=== PATIENT | male | born 1990 | race Caucasian/White ===

== ENCOUNTER 2019-06-30 06:33 | Emergency (ER) | payer MEDICAID, OTHER ==
[2019-06-30] MEDS ORDERED: Dexamethasone 10 MG/ML SDV IVPUSH ONE (08:12)
[2019-06-30] MEDS ORDERED: Benzocaine 20% Topical Spray UD MUCMEM ONE ×2 (08:13→08:22)
[2019-06-30] MEDS ORDERED: Ondansetron 4 MG/2 ML SDV IVPUSH ONE (08:22)
[2019-06-30] MEDS: Sodium Chloride 0.9% 2.5 ML Syringe FLUSH PRN ×2 (08:27→10:20)
[2019-06-30] MEDS: Sodium Chloride 0.9% 10 ML Syringe FLUSH PRN ×2 (08:27→10:20)
[2019-06-30] MEDS ORDERED: Racepinephrine 2.25% 0.5 ML Neb Soln NEB ONE (08:30)
[2019-06-30] MEDS ORDERED: Sodium Chloride 0.9% Inhalation Soln 3 ML Neb INH PRN (08:30)
[2019-06-30] MEDS ORDERED: Ampicillin/Sulbactam Na 3 GM in Sodium Chloride 0.9% 100 ML IV ONE ×2 (08:31→09:30)
[2019-06-30 08:47] LABS: BLOOD UREA NITROGEN,BUN 20 mg/dL (7.0-18.0); CARBON DIOXIDE,CO2 24.2 mmol/L (21.0-32.0); CHLORIDE,CL 104 mmol/L (98-107); GLUCOSE RANDOM 111 mg/dL (74-106); POTASSIUM,K 4.1 mmol/L (3.5-5.1); SODIUM,NA 140 mmol/L (136-148)
--- NOTE | 2019-06-30 08:57 | EDM.PDOC ---
ED HPI GENERAL MEDICAL PROBLEM - General Chief Complaint: ENT Problem Stated Complaint: TOOTHACHE Time Seen by Provider: 06/30/19 07:50 Source of Information: Reports: Patient History Limitations: Reports: No Limitations - History of Present Illness INITIAL COMMENTS - FREE TEXT/NARRATIVE: HISTORY AND PHYSICAL: History of present illness: Patient is a 29-year-old male who presents to the ED today with concern of swelling in the back of his throat that he woke up with. Patient states that he has never had this occur before and he just woke up with it. Patient states if he opens his mouth to widely he will begin to gag and almost vomit. Patient states he has not tried to eat or drink anything since he woke up this morning. Patient denies any health history or any other symptoms or concerns. Patient denies fever, chills, chest pain, shortness of breath, or cough. Denies headache, neck stiff ness, change in vision, syncope, or near syncope. Denies nausea, vomiting, abdominal pain, diarrhea, constipation, or dysuria. Has not noted any blood in urine or stool. Patient has been eating and drinking appropriately. Review of systems: As per history of present illness and below otherwise all systems reviewed and negative. Past medical history: As per history of present illness and as reviewed below otherwise noncontributory. Surgical history: As per history of present illness and as reviewed below otherwise noncontributory. Social history: See social history for further information Family history: As per history of present illness and as reviewed below otherwise noncontributory. Physical exam: General: Patient is alert, oriented, and in no acute distress. Patient sitting comfortably on exam table. HEENT: Examination of the throat is limited due to patient nearly vomiting when opening mouth. However, the posterior oropharynx/possible uvula edema with erythema without exudate. Otherwise, atraumatic, normocephalic, pupils equal and reactive bilaterally, negative for conjunctival pallor or scleral icterus, mucous membranes moist, TMs normal bilaterally, neck supple, nontender, trachea midline. No drooling or trismus noted. No meningeal signs. No hot potato voice noted. Lungs: Clear to auscultation, breath sounds equal bilaterally, chest nontender. Heart: S1S2, regular rate and rhythm without overt murmur Abdomen: Soft, nondistended, nontender. Negative for masses or hepatosplenomegaly. Negative for costovertebral tenderness. Pelvis: Stable nontender. Genitourinary: Deferred. Rectal: Deferred. Skin: Intact, warm, dry. No lesions or rashes noted. Extremities: Atraumatic, negative for cords or calf pain. Neurovascular unremarkable. Neuro: Awake, alert, oriented. Cranial nerves II through XII unremarkable. Cerebellum unremarkable. Motor and sensory unremarkable throughout. Exam nonfocal. Notes: Dr. Hernandez directly involved in patient care. I did call and speak to ENT specialist, Dr. Booker, and thoroughly discussed patient's case. Dr. Booker does not seem concerned about any acute process at this time and states to send patient home on antibiotics. Patient able to tolerate PO intake in the ED and has improvement of symptoms today in the ED. Discussed importance for follow-up with a primary care provider. Voices understanding and is agreeable to plan of care. Denies any further questions or concerns at this time. Diagnostics: CBC, CMP, Soft tissue neck CT, Strep Therapeutics: Decadron, Racemic epinephrine, Unasyn, Zofran Prescription: Clindamycin Impression: Tonsillitis Plan: 1. Take medication as prescribed. You can alternate ibuprofen and Tylenol as directed for pain and discomfort. 2. Follow-up with a primary care provider as discussed. Return to the ED as needed and as discussed. Definitive disposition and diagnosis as appropriate pending reevaluation and review of above. dental area Pain Score (Numeric/FACES): 2 - Related Data Allergies Allergy/AdvReac Type Severity Reaction Status Date / Time shellfish derived Allergy Anaphylactic Verified 06/30/19 06:46 Shock shrimp Allergy Anaphylactic Verified 06/30/19 06:46 Shock Home Meds: Home Meds Clindamycin HCl 600 mg PO BID 10 Days #40 capsule 06/30/19 [Rx] Past Medical History HEENT History: Reports: None Cardiovascular History: Reports: None Respiratory History: Reports: None Gastrointestinal History: Reports: None Genitourinary History: Reports: None Musculoskeletal History: Reports: None Neurological History: Reports: None Psychiatric History: Reports: None Endocrine/Metabolic History: Reports: None Insulin Pump Model and Improvement Rn: None Hematologic History: Reports: None Immunologic History: Reports: None Oncologic (Cancer) History: Reports: None Dermatologic History: Reports: None - Infectious Disease History Infectious Disease History: Reports: None - Past Surgical History Head Surgeries/Procedures: Reports: None HEENT Surgical History: Reports: None Cardiovascular Surgical History: Reports: None Respiratory Surgical History: Reports: None GI Surgical History: Reports: None Male Surgical History: Reports: None Endocrine Surgical History: Reports: None Neurological Surgical History: Reports: None Musculoskeletal Surgical History: Reports: None Oncologic Surgical History: Reports: None Dermatological Surgical History: Reports: None Social & Family History - Family History Family Medical History: Noncontributory - Tobacco Use Smoking Status *Q: Never Smoker - Caffeine Use Caffeine Use: Reports: Coffee, Soda - Recreational Drug Use Recreational Drug Use: No ED ROS GENERAL - Review of Systems Review Of Systems: Comprehensive ROS is negative, except as noted in HPI. ED EXAM, GENERAL - Physical Exam Exam: See Below (see dictation) Course - Vital Signs Last Recorded V/S: Last Vital Signs Temp 98.1 F 06/30/19 06:45 Pulse 128 H 06/30/19 06:45 Resp 18 06/30/19 06:45 BP 151/98 H 06/30/19 06:45 Pulse Ox 96 06/30/19 06:45 - Orders/Labs/Meds Orders: Active Orders 24 hr Category Date Time Status RT Aerosol Therapy [RC] ASDIRECTED Care 06/30/19 08:30 Active CULTURE STREP A CONFIRMATION [] Stat Lab 06/30/19 08:30 Results STREP SCRN A RAPID W CULT CONF [] Stat Lab 06/30/19 08:30 Results Sodium Chloride 0.9% Med 06/30/19 08:30 Active 3 ml INH ASDIRECTED PRN Sodium Chloride 0.9% [Saline Flush] Med 06/30/19 08:02 Active 10 ml FLUSH ASDIRECTED PRN Sodium Chloride 0.9% [Saline Flush] Med 06/30/19 08:02 Active 2.5 ml FLUSH ASDIRECTED PRN Saline Lock Insert [OM.PC] Stat Oth 06/30/19 08:02 Ordered Medication Orders Sodium Chloride (Saline Flush) 10 ml FLUSH ASDIRECTED PRN PRN Reason: Keep Vein Open Last Admin: 06/30/19 10:20 Dose: 10 ml Admin: 06/30/19 08:27 Dose: 10 ml Sodium Chloride (Saline Flush) 2.5 ml FLUSH ASDIRECTED PRN PRN Reason: Keep Vein Open Last Admin: 06/30/19 10:20 Dose: 2.5 ml Admin: 06/30/19 08:27 Dose: 2.5 ml Sodium Chloride (Sodium Chloride 0.9%) 3 ml INH ASDIRECTED PRN PRN Reason: mix with racepinephrine neb Last Admin: 06/30/19 10:20 Dose: 3 ml Labs: Laboratory Tests 06/30/19 06/30/19 Range/Units 08:20 08:20 WBC 11.02 H (4.0-11.0) K/uL RBC 5.48 (4.50-5.90) M/uL Hgb 16.6 (13.0-17.0) g/dL Hct 50.3 H (38.0-50.0) % MCV 91.8 (80.0-98.0) fL MCH 30.3 (27.0-32.0) pg MCHC 33.0 (31.0-37.0) g/dL RDW Std Deviation 43.7 (28.0-62.0) fl RDW Coeff of Fabian 13 (11.0-15.0) % Plt Count 204 (150-400) K/uL MPV 10.90 (7.40-12.00) fL Neut % (Auto) 81.5 H (48.0-80.0) % Lymph % (Auto) 6.8 L (16.0-40.0) % Wagoner % (Auto) 10.7 (0.0-15.0) % Eos % (Auto) 0.7 (0.0-7.0) % Baso % (Auto) 0.3 (0.0-1.5) % Neut # (Auto) 9.0 H (1.4-5.7) K/uL Lymph # (Auto) 0.8 (0.6-2.4) K/uL Wagoner # (Auto) 1.2 H (0.0-0.8) K/uL Eos # (Auto) 0.1 (0.0-0.7) K/uL Baso # (Auto) 0.0 (0.0-0.1) K/uL Nucleated RBC % 0.0 /100WBC Nucleated RBCs # 0 K/uL Sodium 140 (136-148) mmol/L Potassium 4.1 (3.5-5.1) mmol/L Chloride 104 (98-107) mmol/L Carbon Dioxide 24.2 (21.0-32.0) mmol/L BUN 20 H (7.0-18.0) mg/dL Creatinine 1.2 (0.8-1.3) mg/dL Est Cr Clr Drug Dosing 78.30 mL/min Estimated GFR (MDRD) > 60.0 ml/min Glucose 111 H (74-106) mg/dL Calcium 8.9 (8.5-10.1) mg/dL Total Bilirubin 0.4 (0.2-1.0) mg/dL AST 13 L (15-37) IU/L ALT 47 (14-63) IU/L Alkaline Phosphatase 105 (46-116) U/L Total Protein 7.5 (6.4-8.2) g/dL Albumin 4.2 (3.4-5.0) g/dL Globulin 3.3 (2.6-4.0) g/dL Albumin/Globulin Ratio 1.3 (0.9-1.6) Meds: Medications Generic Name Dose Route Start Last Admin Trade Name Freq PRN Reason Stop Dose Admin Sodium Chloride 10 ml 06/30/19 08:02 06/30/19 10:20 Saline Flush FLUSH 10 ml ASDIRECTED PRN Administration Keep Vein Open Sodium Chloride 2.5 ml 06/30/19 08:02 06/30/19 10:20 Saline Flush FLUSH 2.5 ml ASDIRECTED PRN Administration Keep Vein Open Sodium Chloride 3 ml 06/30/19 08:30 06/30/19 10:20 Sodium Chloride 0.9% INH 3 ml ASDIRECTED PRN Administration mix with racepinephrine neb Discontinued Medications Generic Name Dose Route Start Last Admin Trade Name Freq PRN Reason Stop Dose Admin Benzocaine Confirm 06/30/19 08:13 06/30/19 08:27 Hurricaine One 20% Administered 06/30/19 08:14 Not Given Dose 1 each MUCMEM .STK-MED ONE Benzocaine 1 each 06/30/19 08:22 06/30/19 08:26 Hurricaine One 20% MUCMEM 06/30/19 08:23 1 each ONETIME ONE Administration Dexamethasone 10 mg 06/30/19 08:12 06/30/19 08:29 Dexamethasone IVPUSH 06/30/19 08:13 10 mg ONETIME ONE Administration Ampicillin Sodium/Sulbactam 100 mls @ 200 mls/hr 06/30/19 08:31 06/30/19 10: 21 Sodium 3 gm/ Sodium Chloride IV 06/30/19 09:00 Not Given ONETIME ONE Ampicillin Sodium/Sulbactam 100 mls @ 200 mls/hr 06/30/19 09:30 06/30/19 10: 18 Sodium 3 gm/ Sodium Chloride IV 06/30/19 09:59 200 mls/hr ONETIME ONE Administration Iopamidol 75 ml 06/30/19 10:01 06/30/19 10:02 Isovue Multipack-370 (76%) IVPUSH 06/30/19 10:02 75 ml ONETIME ONE Administration Ondansetron HCl 4 mg 06/30/19 08:22 06/30/19 08:27 Zofran IVPUSH 06/30/19 08:23 4 mg ONETIME ONE Administration Racepinephrine 0.5 ml 06/30/19 08:30 06/30/19 09:00 S-2 2.25% NEB 06/30/19 08:31 0.5 ml ONETIME ONE Administration Departure - Departure Time of Disposition: 10:45 Disposition: Home, Self-Care 01 Clinical Impression: Tonsillitis - Discharge Information Prescriptions: Clindamycin HCl 600 mg PO BID 10 Days #40 capsule Referrals: PCP,None [Primary Care Provider] - Forms: ED Department Discharge Additional Instructions: The following information is given to patients seen in the emergency department who are being discharged to home. This information is to outline your options for follow-up care. We provide all patients seen in our emergency department with a follow-up referral. The need for follow-up, as well as the timing and circumstances, are variable depending upon the specifics of your emergency department visit. If you don't have a primary care physician on staff, we will provide you with a referral. We always advise you to contact your personal physician following an emergency department visit to inform them of the circumstance of the visit and for follow-up with them and/or the need for any referrals to a consulting specialist. The emergency department will also refer you to a specialist when appropriate. This referral assures that you have the opportunity for follow-up care with a specialist. All of these measure are taken in an effort to provide you with optimal care, which includes your follow-up. Under all circumstances we always encourage you to contact your private physician who remains a resource for coordinating your care. When calling for follow-up care, please make the office aware that this follow-up is from your recent emergency room visit. If for any reason you are refused follow-up, please contact the [facility] Emergency Department at and asked to speak to the emergency department charge nurse. [facility] [address] [place] [id number] [id number] 1. Take medication as prescribed. You can alternate ibuprofen and Tylenol as directed for pain and discomfort. 2. Follow-up with a primary care provider as discussed. Return to the ED as needed and as discussed. Sepsis Event Note - Evaluation Sepsis Screening Result: No Definite Risk - Focused Exam Vital Signs: Vital Signs Temp Pulse Resp BP Pulse Ox 06/30/19 06:45 98.1 F 128 H 18 151/98 H 96 Date Exam was Performed: 06/30/19 Time Exam was Performed: 10:43 - My Orders Last 24 Hours: My Active Orders 06/30/19 08:02 Sodium Chloride 0.9% [Saline Flush] 10 ml FLUSH ASDIRECTED PRN Sodium Chloride 0.9% [Saline Flush] 2.5 ml FLUSH ASDIRECTED PRN Saline Lock Insert [OM.PC] Stat 06/30/19 08:30 CULTURE STREP A CONFIRMATION [RM] Stat STREP SCRN A RAPID W CULT CONF [RM] Stat - Assessment/Plan Last 24 Hours: My Active Orders 06/30/19 08:02 Sodium Chloride 0.9% [Saline Flush] 10 ml FLUSH ASDIRECTED PRN Sodium Chloride 0.9% [Saline Flush] 2.5 ml FLUSH ASDIRECTED PRN Saline Lock Insert [OM.PC] Stat 06/30/19 08:30 CULTURE STREP A CONFIRMATION [RM] Stat STREP SCRN A RAPID W CULT CONF [RM] Stat
[2019-06-30] MEDS ORDERED: Iopamidol 755 MG/ML 200 ML Multipack Bottle IVPUSH ONE (10:01)
--- NOTE | 2019-06-30 10:21 | CT ---
HISTORY: Swollen oropharynx and palate. TECHNIQUE: Intravenous contrast enhanced CT of the neck. 75 mL of Isovue-370 intravenous contrast administered. COMPARISON: No prior. FINDINGS: No abnormality within the included portions of the intracranial space. - The orbits appear unremarkable. - Mucous retention cyst or polyp within the left maxillary sinus. Minor mucosal thickening involving the right maxillary sinus inferiorly. No acute sinusitis. Mastoid air cells and middle ear cavities are clear. - There is enlargement of the adenoids and also relative enlargement of the pharyngeal tonsils. Mild associated narrowing of the airway at those levels. There is no tonsillar or peritonsillar abscess. The parapharyngeal fat planes are maintained. The epiglottis is normal. No prevertebral fluid collection. - The parotid and submandibular glands are unremarkable. Thyroid is unremarkable. - There are small bilateral neck lymph nodes which may be reactive. - The carotid arteries and jugular veins are patent. - There is no cervical fracture or cervical malalignment. - No infiltrate within the lung apices. No proximal to mid endotracheal mass. IMPRESSION: 1. Enlargement of the adenoids and pharyngeal tonsils without tonsillar or peritonsillar abscess. Mild associated narrowing of the airway at those levels. 2. No abnormal thickening of the epiglottis. 3. No prevertebral fluid collection. 4. Small bilateral neck lymph nodes are likely reactive. 5. Mucous retention cyst versus polyp within the left maxillary sinus. No acute sinusitis. Dictated by MD @ 06/30/2019 10:20:13 AM Please note that all CT scans at this facility use dose modulation, iterative reconstruction, and/or weight-based dosing when appropriate to reduce radiation dose to as low as reasonably achievable. Dictated by: Akin Wayne MD @ 06/30/2019 10:20:21 (Electronically Signed)
== END 2019-06-30 11:10 | disposition home or self-care (01) ==
LOC: MW.ED 06:33
DX: J03.90 Acute tonsillitis, unspecified (principal); Z91.013 Allergy to seafood
CPT/HCPCS: 36415; 70491; 80053; 85025; 87081; 87880; 96365; 96375; 99284; A9270; J0295; J1100; J2405; J7050; Q9967; 99283

== ENCOUNTER 2019-10-16 18:21 | Emergency (ER) | payer MEDICAID | END 2019-10-16 18:57 | disposition left against medical advice (07) | LOC: MW.ED 18:21 | DX: Z53.21 Procedure and treatment not carried out due to patient leaving prior to being seen by health care provider (principal) ==

== ENCOUNTER 2019-10-16 19:14 | Emergency (ER) | payer MEDICAID ==
[2019-10-16] MEDS ORDERED: Ketorolac 15 MG/ML SDV IVPUSH ONE (19:36)
[2019-10-16] MEDS ORDERED: Sodium Chloride 0.9% 1,000 ML IV ONE (19:36)
[2019-10-16] MEDS ORDERED: Sodium Chloride 0.9% 10 ML Syringe FLUSH PRN (19:36)
[2019-10-16] MEDS ORDERED: Sodium Chloride 0.9% 2.5 ML Syringe FLUSH PRN (19:36)
--- NOTE | 2019-10-16 19:40 | EDM.PDOC ---
ED HPI GENERAL MEDICAL PROBLEM - General Chief Complaint: Abdominal Pain Stated Complaint: ABDOMINAL PAIN Time Seen by Provider: 10/16/19 19:30 - History of Present Illness INITIAL COMMENTS - FREE TEXT/NARRATIVE: History of present illness: 29-year-old male presenting with lower abdominal pain, located mostly in the lower abdomen/suprapubic area and also slightly in the left lower quadrant. Started about 2 hours ago and he reports that an hour or so before the pain started he ate some food and felt that he may have accidentally ingested some paper or possibly something more solid while eating. He is concerned that it he may have a foreign body internally. Review of systems: As per history of present illness and below otherwise all systems reviewed and negative. Past medical history: As per history of present illness and as reviewed below otherwise noncontributory. Surgical history: As per history of present illness and as reviewed below otherwise noncontributory. Social history: No reported history of drug or alcohol abuse. No tobacco Family history: As per history of present illness and as reviewed below otherwise noncontributory. Physical exam: GEN: no acute distress, well appearing HEENT: Atraumatic, normocephalic, mucous membranes moist, Neck: supple, nontender, trachea midline. Lungs: No respiratory distress. Heart: RRR Abdomen: Soft, nondistended, tender to palpation suprapubic and left lower quadrant/left upper quadrant area. No rebound or guarding. Back: nontender Extremities: Atraumatic. Neurovascularly intact. Neuro: Awake, alert, oriented. Neuro Exam nonfocal. Skin: warm, dry, no lesions Diagnostics: [] Therapeutics: [] MDM: Impression: [] Plan: [] Definitive disposition and diagnosis as appropriate pending reevaluation and review of above. Abdomen Pain Score (Numeric/FACES): 2 - Related Data Allergies Allergy/AdvReac Type Severity Reaction Status Date / Time shellfish derived Allergy Anaphylactic Verified 10/16/19 19:31 Shock shrimp Allergy Anaphylactic Verified 10/16/19 19:31 Shock Home Meds: Home Meds . [No Known Home Meds] 10/16/19 [History] Past Medical History HEENT History: Reports: None Cardiovascular History: Reports: None Respiratory History: Reports: None Gastrointestinal History: Reports: None Genitourinary History: Reports: None Musculoskeletal History: Reports: None Neurological History: Reports: None Psychiatric History: Reports: None Endocrine/Metabolic History: Reports: None Insulin Pump Model and Ad Writer: None Hematologic History: Reports: None Immunologic History: Reports: None Oncologic (Cancer) History: Reports: None Dermatologic History: Reports: None - Infectious Disease History Infectious Disease History: Reports: None - Past Surgical History Head Surgeries/Procedures: Reports: None HEENT Surgical History: Reports: None Cardiovascular Surgical History: Reports: None Respiratory Surgical History: Reports: None GI Surgical History: Reports: None Male Surgical History: Reports: None Endocrine Surgical History: Reports: None Neurological Surgical History: Reports: None Musculoskeletal Surgical History: Reports: None Oncologic Surgical History: Reports: None Dermatological Surgical History: Reports: None Social & Family History - Family History Family Medical History: Noncontributory - Tobacco Use Smoking Status *Q: Never Smoker - Caffeine Use Caffeine Use: Reports: None - Recreational Drug Use Recreational Drug Use: No ED ROS GENERAL - Review of Systems Review Of Systems: See Below (See HPI) ED EXAM, GI/ABD - Physical Exam Exam: See Below (See HPI) Course - Vital Signs Text/Narrative:: Central lower abdominal pain, patient questionably ingested foreign body with food, he is not certain. Labs unremarkable except for slightly elevated creatinine, slightly elevated white count, mild hypokalemia and slightly elevated glucose level (not fasting, ate just prior to arrival here). He also has elevated LFTs. Chest x-ray and CT scan ordered which showed no foreign body or other acute intra-abdominal or intrathoracic pathology. UA negative. The patient is feeling well and would like to be discharged. Discussed LFT findings and need for close monitoring, alcohol avoidance, and follow-up with pr imary care. Last Recorded V/S: Last Vital Signs Temp 97.8 F 10/16/19 19:30 Pulse 97 10/16/19 21:20 Resp 18 10/16/19 21:20 BP 131/71 10/16/19 21:20 Pulse Ox 97 10/16/19 21:20 - Orders/Labs/Meds Orders: Active Orders 24 hr Category Date Time Status Sodium Chloride 0.9% [Saline Flush] Med 10/16/19 19:36 Active 10 ml FLUSH ASDIRECTED PRN Sodium Chloride 0.9% [Saline Flush] Med 10/16/19 19:36 Active 2.5 ml FLUSH ASDIRECTED PRN Saline Lock Insert [OM.PC] Stat Oth 10/16/19 19:36 Ordered Medication Orders Sodium Chloride (Saline Flush) 10 ml FLUSH ASDIRECTED PRN PRN Reason: Keep Vein Open Sodium Chloride (Saline Flush) 2.5 ml FLUSH ASDIRECTED PRN PRN Reason: Keep Vein Open Labs: Laboratory Tests 10/16/19 10/16/19 10/16/19 Range/Units 19:40 19:40 19:40 WBC 11.97 H (4.0-11.0) K/uL RBC 5.61 (4.50-5.90) M/uL Hgb 17.3 H (13.0-17.0) g/dL Hct 50.4 H (38.0-50.0) % MCV 89.8 (80.0-98.0) fL MCH 30.8 (27.0-32.0) pg MCHC 34.3 (31.0-37.0) g/dL RDW Std Deviation 41.3 (28.0-62.0) fl RDW Coeff of Fabian 13 (11.0-15.0) % Plt Count 313 (150-400) K/uL MPV 11.20 (7.40-12.00) fL Neut % (Auto) 64.2 (48.0-80.0) % Lymph % (Auto) 23.6 (16.0-40.0) % George % (Auto) 11.4 (0.0-15.0) % Eos % (Auto) 0.5 (0.0-7.0) % Baso % (Auto) 0.3 (0.0-1.5) % Neut # (Auto) 7.7 H (1.4-5.7) K/uL Lymph # (Auto) 2.8 H (0.6-2.4) K/uL George # (Auto) 1.4 H (0.0-0.8) K/uL Eos # (Auto) 0.1 (0.0-0.7) K/uL Baso # (Auto) 0.0 (0.0-0.1) K/uL Nucleated RBC % 0.0 /100WBC Nucleated RBCs # 0 K/uL Sodium 142 (136-148) mmol/L Potassium 3.3 L (3.5-5.1) mmol/L Chloride 104 (98-107) mmol/L Carbon Dioxide 23.8 (21.0-32.0) mmol/L BUN 20 H (7.0-18.0) mg/dL Creatinine 1.4 H (0.8-1.3) mg/dL Est Cr Clr Drug Dosing 69.62 mL/min Estimated GFR (MDRD) 59.5 ml/min Glucose 177 H (74-106) mg/dL Calcium 9.8 (8.5-10.1) mg/dL Total Bilirubin 0.7 (0.2-1.0) mg/dL AST 57 H (15-37) IU/L ALT 130 H (14-63) IU/L Alkaline Phosphatase 92 (46-116) U/L Total Protein 8.3 H (6.4-8.2) g/dL Albumin 4.9 (3.4-5.0) g/dL Globulin 3.4 (2.6-4.0) g/dL Albumin/Globulin Ratio 1.4 (0.9-1.6) Urine Color YELLOW Urine Appearance CLEAR Urine pH 6.0 (5.0-8.0) Ur Specific Potter >= 1.030 (1.001-1.035) Urine Protein NEGATIVE (NEGATIVE) mg/dL Urine Glucose (UA) NEGATIVE (NEGATIVE) mg/dL Urine Ketones TRACE H (NEGATIVE) mg/dL Urine Occult Blood TRACE-INTACT H (NEGATIVE) Urine Nitrite NEGATIVE (NEGATIVE) Urine Bilirubin NEGATIVE (NEGATIVE) Urine Urobilinogen 0.2 (<2.0) EU/dL Ur Leukocyte Esterase NEGATIVE (NEGATIVE) Urine RBC NONE SEEN (0-2/HPF) Urine WBC 0-1 (0-5/HPF) Ur Epithelial Cells RARE (NONE-FEW) Calcium Oxalate Crystal FEW (NEGATIVE) Urine Bacteria FEW (NEGATIVE) Urine Mucus LIGHT (NONE-MOD) Meds: Medications Generic Name Dose Route Start Last Admin Trade Name Freq PRN Reason Stop Dose Admin Sodium Chloride 10 ml 10/16/19 19:36 Saline Flush FLUSH ASDIRECTED PRN Keep Vein Open Sodium Chloride 2.5 ml 10/16/19 19:36 Saline Flush FLUSH ASDIRECTED PRN Keep Vein Open Discontinued Medications Generic Name Dose Route Start Last Admin Trade Name Freq PRN Reason Stop Dose Admin Sodium Chloride 1,000 mls @ 999 mls/hr 10/16/19 19:36 10/16/19 19:48 Normal Saline IV 10/16/19 20:36 999 mls/hr .Bolus ONE Administration Iopamidol 100 ml 10/16/19 20:57 10/16/19 20:59 Isovue Multipack-370 (76%) IVPUSH 10/16/19 20:58 100 ml ONETIME STA Administration Ketorolac Tromethamine 30 mg 10/16/19 19:36 10/16/19 19:48 Toradol IVPUSH 10/16/19 19:37 30 mg ONETIME ONE Administration - Re-Assessments/Exams Free Text/Narrative Re-Assessment/Exam: 10/16/19 19:44 Patient later reported to the nurse that he felt that there was something sharp in his esophagus when swallowing. Therefore chest 2 view also ordered. 10/16/19 21:38 Patient feeling better. Would like to be discharged at this time. Discussed all results with the patient and need for follow-up labs. Patient voiced understanding and agrees with the plan. Discussed with the patient the elevated creatinine and elevated liver function tests and need for follow-up. He does not consume any alcohol but does report that he drinks a lot of soda and takes "vegetable pills" as a supplement. We discussed minimizing soda use, not consuming any alcohol, and avoidance of the vegetable supplement pills until he can get evaluated by her primary care physician and have repeat lab testing and further evaluation. He voiced understanding and agrees to do so. His name was placed on the follow-up call sheet for the primary clinic to call him and enact follow-up SHALINI. Departure - Departure Time of Disposition: 21:39 Disposition: Home, Self-Care 01 Clinical Impression: Elevated liver function tests, Elevated serum creatinine Abdominal pain Qualifiers: Abdominal location: lower abdomen, unspecified Qualified Code(s): R10.30 - Lower abdominal pain, unspecified - Discharge Information Instructions: Liver Function Tests, Abdominal Pain, Adult, [id number], Serum Creatinine Test Referrals: PCP,None [Primary Care Provider] - Forms: ED Department Discharge Additional Instructions: We did not find an acute cause for your abdominal pain today. Your creatinine level was slightly elevated, as were your liver function tests. These may be related to dehydration, alcohol consumption and fat consumption. Please drink lots of fluids and avoid any alcohol consumption. Will need to have your liver function tests and creatinine rechecked. Please return to the ER immediately if any worsening of symptoms. Follow-up with 1 of the primary care physicians at 1 of the clinics listed below for further evaluation and repeat lab testing. The following information is given to patients seen in the emergency department who are being discharged to home. This information is to outline your options for follow-up care. We provide all patients seen in our emergency department with a follow-up referral. The need for follow-up, as well as the timing and circumstances, are variable depending upon the specifics of your emergency department visit. If you don't have a primary care physician on staff, we will provide you with a referral. We always advise you to contact your personal physician following an emergency department visit to inform them of the circumstance of the visit and for follow-up with them and/or the need for any referrals to a consulting specialist. The emergency department will also refer you to a specialist when appropriate. This referral assures that you have the opportunity for follow-up care with a specialist. All of these measure are taken in an effort to provide you with optimal care, which includes your follow-up. Under all circumstances we always encourage you to contact your private physician who remains a resource for coordinating your care. When calling for follow-up care, please make the office aware that this follow-up is from your recent emergency room visit. If for any reason you are refused follow-up, please contact the [facility] Emergency Department at and asked to speak to the emergency department charge nurse. [facility] [address] [place] [id number] [facility] [address] [place] [id number] Sepsis Event Note (ED) - Evaluation Sepsis Screening Result: No Definite Risk - Focused Exam Vital Signs: Vital Signs Temp Pulse Resp BP Pulse Ox 10/16/19 21:20 97 18 131/71 97 10/16/19 19:30 97.8 F 120 H 18 152/88 H 98 - My Orders Last 24 Hours: My Active Orders 10/16/19 19:36 Sodium Chloride 0.9% [Saline Flush] 10 ml FLUSH ASDIRECTED PRN Sodium Chloride 0.9% [Saline Flush] 2.5 ml FLUSH ASDIRECTED PRN Saline Lock Insert [OM.PC] Stat - Assessment/Plan Last 24 Hours: My Active Orders 10/16/19 19:36 Sodium Chloride 0.9% [Saline Flush] 10 ml FLUSH ASDIRECTED PRN Sodium Chloride 0.9% [Saline Flush] 2.5 ml FLUSH ASDIRECTED PRN Saline Lock Insert [OM.PC] Stat
[2019-10-16 20:28] LABS: CARBON DIOXIDE,CO2 23.8 mmol/L (21.0-32.0); POTASSIUM,K 3.3 mmol/L (3.5-5.1)
[2019-10-16] MEDS ORDERED: Iopamidol 755 MG/ML 500 ML Multipack Bottle IVPUSH STA (20:57)
--- NOTE | 2019-10-16 21:13 | CT ---
CT abdomen and pelvis Technique: Multiple axial sections were obtained from above the dome of the diaphragm inferiorly through the pubic symphysis. Intravenous contrast was utilized. No oral contrast has been given. Comparison: No prior CT abdomen or pelvis exam is available. Findings: Visualized lung bases show nothing acute. Limitations: Respiratory motion artifact causes misregistration of some of the upper cuts with resultant loss of details. Liver contains no focal parenchymal abnormality. Spleen appears within normal limits. Adrenal glands show no nodule. Pancreas is within normal limits. Gallbladder contains no calcified gallstones. Kidneys show symmetric contrast enhancement without hydronephrosis or mass. Aorta shows no aneurysm. No retroperitoneal adenopathy or mesenteric abnormalities are seen. Appendix is seen which is normal in size. No pelvic mass or adenopathy is seen. No free fluid or inflammatory change is appreciated. No radiopaque foreign object is appreciated. Bone window settings were reviewed which shows no acute osseous finding. Bone window settings were reviewed which show no acute osseous finding. Impression: 1. No definite radiopaque foreign object is seen. 2. Motion artifact causing some loss of the details within the uppermost cuts. 3. No acute abnormality is appreciated on CT study of the abdomen and pelvis. Diagnostic code #2 This report was dictated in MDT
--- NOTE | 2019-10-16 21:36 | CR ---
Chest: 2 views of the chest were obtained. Comparison: No previous chest imaging. Heart size and mediastinum are normal. Scoliosis is noted within the spine. Heart size and mediastinum are normal. Lungs are clear. No radiopaque foreign object is seen. Impression: 1. Findings as noted above. 2. Nothing acute is seen on 2 view chest x-ray. No opaque foreign object is seen. Diagnostic code #2 This report was dictated in MDT
== END 2019-10-16 21:50 | disposition home or self-care (01) ==
LOC: MW.ED 19:14
DX: R10.32 Left lower quadrant pain (principal); R10.12 Left upper quadrant pain; Z91.013 Allergy to seafood; R79.89 Other specified abnormal findings of blood chemistry
CPT/HCPCS: 36415; 71046; 74177; 80053; 81001; 85025; 96374; 99284; J1885; J7030; Q9967; 99283

== ENCOUNTER 2021-01-24 18:12 | Emergency (ER) | payer MEDICAID ==
[2021-01-24] MEDS ORDERED: Sodium Chloride 0.9% 1,000 ML IV ONE (18:14)
--- NOTE | 2021-01-24 18:18 | EDM.PDOC ---
ED HPI GENERAL MEDICAL PROBLEM - General Stated Complaint: CHEST PAIN Time Seen by Provider: 01/24/21 18:12 Source of Information: Reports: Patient History Limitations: Reports: No Limitations - History of Present Illness INITIAL COMMENTS - FREE TEXT/NARRATIVE: HISTORY AND PHYSICAL: History of present illness: Patient is a 30-year-old male who presents to the emergency room with complaints of sore throat and right-sided chest pain after driving in his vehicle. Patient states he is concerned there is a crack in the tailpipe resulting in carbon monoxide leaking into the cab of his vehicle. He was driving to [facility] to visit his parents and noticed soon after he was having some chest pain and throat irritation. Symptoms improved while he was at his family's house. Immediately when he got back into the vehicle he felt symptoms return and called EMS. Patient denies any fever, chills, headache, change in vision, syncope or near syncope. Denies any back pain, shortness of breath or cough. Denies any GI or symptoms. Patient has been eating and drinking appropriately. No recent travel or sick contacts. Review of systems: As per history of present illness and below otherwise all systems reviewed and negative. Past medical history: As per history of present illness and as reviewed below otherwise noncontributory. Surgical history: As per history of present illness and as reviewed below otherwise noncontributory. Social history: See social history for further information Family history: As per history of present illness and as reviewed below otherwise noncontributory. Physical exam: General: Well developed and well nourished 30 year old male. Alert and orientated x 3. Nontoxic in appearance and in no acute distress. Vital signs are stable and have been reviewed by me. Nursing notes were reviewed. HEENT: Atraumatic, normocephalic, pupils equal and reactive bilaterally, negative for conjunctival pallor or scleral icterus, mucous membranes moist, throat clear, neck supple, nontender, trachea midline. No drooling or trismus noted. No meningeal signs. No hot potato voice noted. Lungs: Clear to auscultation bilaterally. No wheezes, rales, or rhonchi. Chest nontender. Normal work of breathing, no accessory muscles used. Heart: S1S2, regular rate and rhythm without overt murmur, gallops, or rubs. No JVD. No peripheral edema Abdomen: Soft, nondistended, nontender. Normoactive bowel sounds. Negative for masses or costovertebral tenderness. Skin: Intact, warm, dry. No lesions or rashes noted. Hematologic: No petechiae or purpra. Mucosa appropriate color and normal nail bed color and refill. Extremities: Atraumatic, moves all extremities per self without difficulty or deficits, negative for cords or calf pain. Neurovascular unremarkable. Neuro: Awake, alert, oriented. Cranial nerves II through XII unremarkable. Cerebellum unremarkable. Motor and sensory unremarkable throughout. Exam nonfocal. Psychiatric: Mood and affect are appropriate. Normal thought process. Answering questions appropriately. Please note that the patient was seen and evaluated during the 2019 SARS-CoV-2 novel coronavirus pandemic period. Community viral transmission is ongoing at time of this encounter and the emergency department is operating under pandemic response procedures. Medical Decision Making: Patient is a 30-year-old male who presents to the emergency room with complaints of right sided chest pain and sore throat. Patient attributes these symptoms to possible carbon monoxide poisoning. He states symptoms occurred while he was driving approximately 30 minutes away, he reportedly had the windows down. I have seen this patient in 2019, for same concern. Patient's physical exam is unremarkable. He does appear somewhat anxious. Vital signs are stable. Placed on nonrebreather and labs have been drawn. Carboxyhemoglobin is WNL at 1.8. Lab work including troponin is WNL. CXR shows no concerns. EKG shows sinus tachycardia, which has now resolved- HR 80 NSR. I have talked with the patient about today's findings, in addition to providing specific details for plan of care. Reassessment at the time of disposition demonstrates that the patient is in no acute distress. The patient is stable for discharge, counseling was provided and we discussed in great detail signs and symptoms that would prompt them to return to the Emergency Department. Medication, follow up and supportive care measures were reviewed and discussed. Voices understanding and is agreeable to plan of care. Denies any further questions or concerns at this time. Diagnostics: CBC, CMP, Troponin, EKG, CXR, UA, Drug Screen Therapeutics: NS and NRB O2 Prescription: None Impression: Chest pain, nonspecific Plan: 1. You were evaluated today on an emergent basis. Your lab work is within normal limits. 2. You can alternate Tylenol and ibuprofen as needed for pain and fever management. 3. We encourage you to follow up with your primary care provider and/or recommended specialist in the next few days for re-evaluation and further care/management. 4. If your symptoms should worsen, new symptoms develop or any of the signs and symptoms we discussed should arise please return to the emergency room or call 911 (if needed). Definitive disposition and diagnosis as appropriate pending reevaluation and review of above. chest Pain Score (Numeric/FACES): 1 - Related Data Allergies Allergy/AdvReac Type Severity Reaction Status Date / Time shellfish derived Allergy Anaphylactic Verified 01/24/21 18:51 Shock shrimp Allergy Anaphylactic Verified 01/24/21 18:51 Shock Home Meds: Home Meds . [No Known Home Meds] 10/16/19 [History] Past Medical History HEENT History: Reports: None Cardiovascular History: Reports: None Respiratory History: Reports: None Gastrointestinal History: Reports: None Genitourinary History: Reports: None Musculoskeletal History: Reports: None Neurological History: Reports: None Psychiatric History: Reports: None Endocrine/Metabolic History: Reports: None Insulin Pump Model and Clock And Watch Hands Painter: None Hematologic History: Reports: None Immunologic History: Reports: None Oncologic (Cancer) History: Reports: None Dermatologic History: Reports: None - Infectious Disease History Infectious Disease History: Reports: None - Past Surgical History Head Surgeries/Procedures: Reports: None HEENT Surgical History: Reports: None Cardiovascular Surgical History: Reports: None Respiratory Surgical History: Reports: None GI Surgical History: Reports: None Male Surgical History: Reports: None Endocrine Surgical History: Reports: None Neurological Surgical History: Reports: None Musculoskeletal Surgical History: Reports: None Oncologic Surgical History: Reports: None Dermatological Surgical History: Reports: None Social & Family History - Family History Family Medical History: No Pertinent Family History - Caffeine Use Caffeine Use: Reports: None ED ROS GENERAL - Review of Systems Review Of Systems: Comprehensive ROS is negative, except as noted in HPI. ED EXAM, GENERAL - Physical Exam Exam: See Below (See dictation) Course - Vital Signs Last Recorded V/S: Last Vital Signs Temp 98.9 F 01/24/21 18:38 Pulse 99 01/24/21 18:38 Resp 16 01/24/21 18:38 BP 159/97 H 01/24/21 18:38 Pulse Ox 98 01/24/21 18:38 - Orders/Labs/Meds Orders: Active Orders 24 hr Category Date Time Status Oxygen Therapy, ED [RC] ASDIRECTED Care 01/24/21 18:14 Active OB Transvaginal [US] Stat Exams 01/24/21 19:02 Stop Req DRUG SCREEN, URINE [URCHEM] Stat Lab 01/24/21 18:14 Ordered UA RFX TRESSA AND CULT IF INDIC [URIN] Stat Lab 01/24/21 18:14 Ordered Labs: Laboratory Tests 01/24/21 01/24/21 01/24/21 Range/Units 18:30 18:30 18:53 WBC 11.39 H (4.0-11.0) K/uL RBC 5.40 (4.50-5.90) M/uL Hgb 16.9 (13.0-17.0) g/dL Hct 47.7 (38.0-50.0) % MCV 88.3 (80.0-98.0) fL MCH 31.3 (27.0-32.0) pg MCHC 35.4 (31.0-37.0) g/dL RDW Std Deviation 39.7 (28.0-62.0) fl RDW Coeff of Fabian 13 (11.0-15.0) % Plt Count 259 (150-400) K/uL MPV 11.10 (7.40-12.00) fL Neut % (Auto) 83.5 H (48.0-80.0) % Lymph % (Auto) 8.9 L (16.0-40.0) % [place] % (Auto) 7.2 (0.0-15.0) % Eos % (Auto) 0.2 (0.0-7.0) % Baso % (Auto) 0.2 (0.0-1.5) % Neut # (Auto) 9.5 H (1.4-5.7) K/uL Lymph # (Auto) 1.0 (0.6-2.4) K/uL [place] # (Auto) 0.8 (0.0-0.8) K/uL Eos # (Auto) 0.0 (0.0-0.7) K/uL Baso # (Auto) 0.0 (0.0-0.1) K/uL Nucleated RBC % 0.0 /100WBC Nucleated RBCs # 0 K/uL ABG Carboxyhemoglobin 1.8 (0-15) % Sodium 141 (136-148) mmol/L Potassium 3.4 L (3.5-5.1) mmol/L Chloride 102 (98-107) mmol/L Carbon Dioxide 21.7 (21.0-32.0) mmol/L BUN 16 (7.0-18.0) mg/dL Creatinine 1.3 (0.8-1.3) mg/dL Est Cr Clr Drug Dosing 58.23 mL/min Estimated GFR (MDRD) > 60.0 ml/min Glucose 138 H (74-106) mg/dL Calcium 9.8 (8.5-10.1) mg/dL Total Bilirubin 0.5 (0.2-1.0) mg/dL AST 23 (15-37) IU/L ALT 63 (14-63) IU/L Alkaline Phosphatase 97 (46-116) U/L Troponin I < 0.050 (0.000-0.056) ng/mL Total Protein 7.7 (6.4-8.2) g/dL Albumin 4.2 (3.4-5.0) g/dL Globulin 3.5 (2.6-4.0) g/dL Albumin/Globulin Ratio 1.2 (0.9-1.6) Salicylates <0.2 (0-20) mg/dL Meds: Medications Discontinued Medications Generic Name Dose Route Start Last Admin Trade Name Freq PRN Reason Stop Dose Admin Sodium Chloride 1,000 mls @ 999 mls/hr 01/24/21 18:14 01/24/21 18:31 Normal Saline IV 01/24/21 19:14 999 mls/hr STAT ONE Administration Departure - Departure Time of Disposition: 19:29 Disposition: Home, Self-Care 01 Clinical Impression: Nonspecific chest pain - Discharge Information Referrals: PCP,None [Primary Care Provider] - Additional Instructions: The following information is given to patients seen in the emergency department who are being discharged to home. This information is to outline your options for follow-up care. We provide all patients seen in our emergency department with a follow-up referral. The need for follow-up, as well as the timing and circumstances, are variable depending upon the specifics of your emergency department visit. If you don't have a primary care physician on staff, we will provide you with a referral. We always advise you to contact your personal physician following an emergency department visit to inform them of the circumstance of the visit and for follow-up with them and/or the need for any referrals to a consulting s pecialist. The emergency department will also refer you to a specialist when appropriate. This referral assures that you have the opportunity for follow-up care with a specialist. All of these measure are taken in an effort to provide you with optimal care, which includes your follow-up. Under all circumstances we always encourage you to contact your private physician who remains a resource for coordinating your care. When calling for follow-up care, please make the office aware that this follow-up is from your recent emergency room visit. If for any reason you are refused follow-up, please contact the [facility] Emergency Department at and asked to speak to the emergency department charge nurse. [facility] [address] [place] [id number] [place] [address] Thank you for choosing the [facility] emergency department in [place] for your medical needs today. It was a pleasure caring for you. Today you were seen in the emergency department for chest pain. 1. You were evaluated today on an emergent basis. Your lab work is within normal limits. 2. You can alternate Tylenol and ibuprofen as needed for pain and fever management. 3. We encourage you to follow up with your primary care provider and/or recommended specialist in the next few days for re-evaluation and further care/management. 4. If your symptoms should worsen, new symptoms develop or any of the signs and symptoms we discussed should arise please return to the emergency room or call 911 (if needed). Sepsis Event Note (ED) - Focused Exam Vital Signs: Vital Signs Temp Pulse Resp BP Pulse Ox 01/24/21 18:38 98.9 F 99 16 159/97 H 98 - My Orders Last 24 Hours: My Active Orders 01/24/21 18:14 Oxygen Therapy, ED [] ASDIRECTED DRUG SCREEN, URINE [URCHEM] Stat UA RFX TRESSA AND CULT IF INDIC [URIN] Stat 01/24/21 19:02 OB Transvaginal [US] Stat - Assessment/Plan Last 24 Hours: My Active Orders 01/24/21 18:14 Oxygen Therapy, ED [RC] ASDIRECTED DRUG SCREEN, URINE [URCHEM] Stat UA RFX TRESSA AND CULT IF INDIC [URIN] Stat 01/24/21 19:02 OB Transvaginal [US] Stat
--- NOTE | 2021-01-24 18:47 | PCM.EKG ---
#1 Interpretation EKG Date: 01/24/21 Time: 18:12 Rhythm: NSR Rate (Beats/Min): 110 [place]: Normal P-Wave: Present QRS: Normal ST-T: Normal QT: Normal MT/PQ Interval: 162 Comparison: NA - No Prior EKG EKG Interpretation Comments: sinus tachycardia without ischemic changes
--- NOTE | 2021-01-24 19:13 | CR ---
INDICATION: Chest pain. TECHNIQUE: AP view of the chest. COMPARISON: 10/16/2019. FINDINGS: Normal cardiac, mediastinal and hilar contours. Normal pulmonary vasculature. Lungs are clear. No appreciable pleural fluid. No pneumothorax. No acute bony abnormality is identified. IMPRESSION: No radiographic signs of acute thoracic disease. Dictated by Arvind Perry MD @ 01/24/2021 7:11:58 PM Dictated by: Arvind Perry MD @ 01/24/2021 19:12:07 (Electronically Signed)
[2021-01-24 19:15] LABS: CARBON DIOXIDE,CO2 21.7 mmol/L (21.0-32.0); CHLORIDE,CL 102 mmol/L (98-107); GLUCOSE RANDOM 138 mg/dL (74-106); POTASSIUM,K 3.4 mmol/L (3.5-5.1); SODIUM,NA 141 mmol/L (136-148)
[2021-01-24 19:22] LABS: BLOOD UREA NITROGEN,BUN 16 mg/dL (7.0-18.0)
== END 2021-01-24 19:41 | disposition home or self-care (01) ==
LOC: MW.ED 18:12
DX: R07.9 Chest pain, unspecified (principal); Z91.013 Allergy to seafood; Z91.018 Allergy to other foods
CPT/HCPCS: 36415; 71045; 80053; 80179; 82375; 84484; 85025; 93005; 99285; J7030

== ENCOUNTER 2021-12-16 08:32 | Day surgery (SDC) | payer MEDICAID ==
[~2021-12-16 08:32] MED LIST: Lactated Ringers 1,000 ML IV SCH; ceFAZolin 2 GM in Premix Bag 1 BAG IV SCH
[2021-12-16] MEDS ORDERED: Albuterol 0.083% 2.5 MG/3 ML Neb Soln NEB PRN (10:11)
[2021-12-16] MEDS ORDERED: HYDROmorphone 1 MG/ML Syringe IVPUSH PRN (10:11)
[2021-12-16] MEDS ORDERED: Ondansetron 4 MG/2 ML SDV IVPUSH PRN (10:11)
[2021-12-16] MEDS ORDERED: Naloxone 0.4 MG/ML SDV IVPUSH PRN (10:11)
[2021-12-16] MEDS ORDERED: fentaNYL 50 MCG/ML SDV IVPUSH PRN (10:11)
[2021-12-16] MEDS ORDERED: Metoclopramide 10 MG/2 ML SDV IVPUSH PRN (10:11)
[2021-12-16] MEDS ORDERED: Bupivacaine 0.25%/EPINEPHrine 1:200,000 10 ML SDV ONE (10:36)
[2021-12-16] MEDS ORDERED: fentaNYL 250 MCG/5 ML SDV ONE (10:57)
[2021-12-16] MEDS ORDERED: Propofol 200 MG/20 ML SDV ONE (10:57)
[2021-12-16] MEDS ORDERED: Famotidine 20 MG/2 ML SDV ONE (11:44)
[2021-12-16] MEDS ORDERED: ceFAZolin/Dextrose,Iso-Osmotic 2 GM/50 ML Duplex Bag (Premix) ONE (11:58)
== END 2021-12-16 14:50 | disposition home or self-care (01) ==
LOC: MW.SDS 08:32
PROVIDERS: ATTEND Orthopaedic Surgery
DX: D16.22 Benign neoplasm of long bones of left lower limb (principal); E66.9 Obesity, unspecified; Z91.013 Allergy to seafood; Z98.890 Other specified postprocedural states
CPT/HCPCS: 27355; J0131; J0690; J2704; J3010; J3490; J7120; 01360

== ENCOUNTER 2023-01-08 20:53 | Emergency (ER) | payer MEDICAID | END 2023-01-08 22:40 | disposition home or self-care (01) | LOC: MW.ED 20:53 | DX: K04.7 Periapical abscess without sinus (principal); E66.9 Obesity, unspecified; Z68.35 Body mass index [BMI] 35.0-35.9, adult; Z91.013 Allergy to seafood | CPT/HCPCS: 99282; 99283 ==